=== PATIENT | female | born 1970 | race Caucasian/White ===

== ENCOUNTER 2024-07-01 10:32 | Outpatient (REF) | payer OTHER, SELFPAY ==
--- NOTE | ~2024-07-01 | XR_ITS ---
CLINICAL HISTORY: M54.16 - Radiculopathy, lumbar region 4 views lumbar spine including flexion and extension Comparison: MR - MR LUMBAR SPINE WO CON - 07/04/24 17:54 EST Findings: No acute compression fractures. Subtle 2 mm degenerative anterolisthesis of L4 relative to L5 with associated facet arthropathy. Mild disc space narrowing T12-L1, L2-L3 and L5-S1 with anterior lateral vertebral body osteophytes. Pedicles and transverse processes intact. Lordotic curvature is mild levoscoliosis without lateral listhesis. Normal bone mineralization. Normal soft tissues. Sacroiliac joints unremarkable. No translation on flexion and extension views Impression: 1. Degenerative spondylosis with minimal listhesis and discogenic changes. No translation on flexion and extension views. Mild levoscoliosis This document has been electronically signed by: Lucius Anna MD on 07/05/2024 11:11:56
== END 2024-07-01 10:33 | disposition home or self-care (01) ==
LOC: HO.HOSX 10:32
PROVIDERS: Visit Provider Physician Assistant
DX: M54.16 Radiculopathy, lumbar region (principal)
CPT/HCPCS: 72110

== ENCOUNTER 2024-07-01 10:32 | Outpatient (AMB) | payer OTHER, SELFPAY ==
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
[2024-07-01 10:42] VITALS: BMI 28.3
== END 2024-07-01 11:54 | disposition home or self-care (01) ==
PROVIDERS: Visit Provider Physician Assistant
DX: M54.16 Radiculopathy, lumbar region (principal)
CPT/HCPCS: 99204

== ENCOUNTER → 2024-07-04 17:43 | Outpatient (BNV) | payer OTHER, SELFPAY | PROVIDERS: Visit Provider Radiology Diagnostic Radiology | DX: M54.16 Radiculopathy, lumbar region (principal) | CPT/HCPCS: 72148 ==

== ENCOUNTER 2024-07-04 17:45 | Outpatient (REF) | payer OTHER, SELFPAY ==
--- NOTE | ~2024-07-04 | MR_ITS ---
CLINICAL HISTORY: M54.16 - Radiculopathy, lumbar region Examination: MRI lumbar spine without intravenous contrast Comparison: DX - XR LUMBAR SPINE 4V MIN - 07/01/24 11:04 EST Findings: Plain radiograph correlation: 07/01/2024 demonstrated 5 developed zul-see-gojkhgg lumbar vertebra, discs numbered accordingly. No acute compression fractures. Minimal degenerative anterolisthesis of L4. The vertebral body heights are well maintained. No acute or chronic compression deformities are present. Type 2 Modic changes L2-L3 level. The anterior posterior longitudinal ligament and interspinous ligament are preserved. Paravertebral soft tissues within normal limits. Imaged portion of the retroperitoneum unremarkable. Sacroiliac joints appear normal. The conus demonstrates normal caliber and signal intensity and terminates at L1 level. Individual intervertebral disc levels as follows: L1-L2: Mild loss of disc space height. No disc bulge protrusion or extrusion. No central or foraminal stenosis or thecal sac compression. Normal posterior elements. L2-L3: Mild loss of disc space height. Subarticular disc herniations. Mild degenerative facet arthropathy. No nerve root impingement. L3-L4: Normal disc height and signal with no discogenic changes. Subarticular disc herniations and degenerative facet arthropathy causing mild central and foraminal stenosis. No nerve root impingement. L4-L5: Concentric disc bulge. Degenerative facet hypertrophy encroaching on the neural foramina. Dorsal compression of the thecal sac abutting the descending nerve roots. No nerve root impingement. L5-S1: Mild loss of disc space height. Subarticular disc herniations and degenerative facet hypertrophy is encroaching on the neural foramina. There is impingement of L5 exiting nerve roots bilaterally. T12-L1: Moderate loss of disc space height. Mild disc bulge. No cord or nerve root impingement. Impression: 1. No acute compression fractures. Mild degenerative spondylolisthesis L4. 2. Multilevel degenerative spondylosis and degenerative disc disease as described. There is impingement of L5 exiting nerve roots bilaterally. Type 2 Modic changes L2-L3. 3. Levoscoliosis. This document has been electronically signed by: Lucius Anna MD on 07/05/2024 09:51:10
== END 2024-07-04 17:46 | disposition home or self-care (01) ==
LOC: HO.MRI 17:45
PROVIDERS: Visit Provider Physician Assistant
DX: M54.16 Radiculopathy, lumbar region (principal)
CPT/HCPCS: 72148

== ENCOUNTER 2024-07-11 06:24 | Outpatient (REF) | payer OTHER, SELFPAY ==
--- NOTE | ~2024-07-11 | FL_ITS ---
EXAMINATION: FL GUIDANCE ONLY HISTORY: M54.16 - Radiculopathy, lumbar region COMPARISON: None available. TECHNIQUE: Fluoroscopy time: 0.2 minutes. Cumulative Dose: 5.18 mGy. DAP: 0.0375 uGy-m2 (microgray-meter squared). Images: 3. FINDINGS: Images demonstrate a needle within, and subsequently opacification of, the right L5-S1 facet joint. FL/FL guidance in treatment room IMPRESSION: Fluoroscopy during procedure. Please see procedure report for additional information. Electronically signed by: Billy Brambila MD 07/22/2024 03:23 PM RAMIRO NARVAEZ
== END 2024-07-11 06:25 | disposition home or self-care (01) ==
LOC: CF 06:24
PROVIDERS: Visit Provider Internal Medicine
DX: M54.16 Radiculopathy, lumbar region (principal)
CPT/HCPCS: 64483; J1100; J2003; J3301; Q9967

== ENCOUNTER 2024-07-11 10:45 | Outpatient (AMB) | payer OTHER, SELFPAY ==
[2024-07-11 10:53] VITALS: BP 155/90; PULSE 71; O2SAT 100
--- NOTE | 2024-07-11 10:53 | A.OFFVIS_ITS ---
Vital Signs 07/11/24 10:53 07/11/24 11:30 BP 155/90 H 164/82 H Blood Pressure Location Lt brachial Lt brachial Position Sitting Sitting Pulse 71 75 Pulse Source Pulse Oximeter Pulse Oximeter Pulse Oximetry (%) 100 99 Oxygen Delivery Method Room Air Room Air Intake Visit Reasons: Right L5 TFESI Allergies bacitracin Allergy (Mild, Verified 07/01/24 10:44) Unknown HPI HPI Right L5 TFESI: Details: Patient presents for scheduled procedure. Denies any recent cough, cold, infection, fever or other significant changes in medical history since last office visit. Physical Exam Vital Signs: Last Vital Signs Pulse 75 07/11/24 11:30 BP 164/82 H 07/11/24 11:30 Pulse Ox 99 07/11/24 11:30 Oxygen Delivery Method Room Air 07/11/24 11:30 Office Procedures Details: Transforaminal epidural steroid injection, Right L5 After obtaining written consent, pre-procedure blood pressure and heart rate were stable and recorded in the nursing record. The patient was placed in the prone position on the fluoroscopy table. The lumbosacral area was prepped with chloraprep, allowed to dry and draped in sterile fashion. Using fluoroscopy, the skin overlying our target was anesthetized with 0.5% lidocaine. A 22 gauge 3.5 inch spinal needle was advanced to the safe triangle in the upper pole of the right L5 foramen. No paresthesias were elicited with needle placement and aspiration was negative for blood and CS F. Correct needle position was confirmed with approximately 1 ml contrast dye (Omnipaque 180 mg/ml) injected under real-time fluoroscopy. No evidence of vascular or intrathecal uptake was seen and there was both epidural and peripheral spread of the contrast agent. 15 mg dexamethasone plus 1 ml containing 0.5% lidocaine was slowly injected. The needle was flushed and removed. The skin was cleansed and a sterile bandages were applied. The patient tolerated the procedure well and no complications were encountered. Following the procedure the patient's vital signs were stable. The patient was d ischarged home in good condition with post-procedural instructions. Time Out: Immediately prior to the procedure, the following was verbally confirmed that there is a signed consent form and that the correct patient, planned procedure, site and side are consistent with documentation and that necessary equipment and/or blood products are available prior to the start of the case. Complications: none EBL: <5 cc 99635 - Lumbar/Sacral Procedure code (CPT) selection complete Assessment & Plan Assessment & Plan (1) Lumbar radiculopathy: Code(s): M54.16 - Radiculopathy, lumbar region Category: Medical Plan Patient is status post right L5 TFESI. Patient tolerated procedure well and was discharged home in stable condition with discharge instructions. All questions were answered. We will follow-up via telephone or in clinic to assess response to therapy. A follow-up appointment was made during today's visit. Orders: Orders 2 FL guidance in treatment room Today M54.16 - Radiculopathy, lumbar region Coding Level of Care Code Procedure Only Diagnoses Lumbar radiculopathy M54.16 CPT Codes Transforaminal Epidural Steroid Inj - TESI 3: 52987 - Lumbar/Sacral ([id number])
[2024-07-11 11:30] VITALS: BP 164/82; PULSE 75; O2SAT 99
== END 2024-07-11 11:30 | disposition home or self-care (01) ==
LOC: HO.PMCPRC 10:45
PROVIDERS: PCP Registered Nurse; Visit Provider Internal Medicine
DX: M54.16 Radiculopathy, lumbar region (principal)
CPT/HCPCS: 64483

== ENCOUNTER 2024-08-07 09:03 | Outpatient (AMB) | payer OTHER, SELFPAY ==
--- NOTE | 2024-08-07 09:04 | MHC.OFFVIS ---
Vital Signs 08/07/24 09:06 Height 5 ft 2 in Weight 162 lb BMI 29.6 BP 177/83 H Blood Pressure Location Lt brachial Position Sitting Respiration 16 Pulse 78 Pulse Source Pulse Oximeter Pulse Oximetry (%) 97 Oxygen Delivery Method Room Air Intake Visit Reasons: s/p right L5 TFESI Radar Engineer Required: No Allergies bacitracin Allergy (Mild, Verified 08/07/24 09:07) Unknown Medication List - Last Reconciled 08/07/24 by Lorna Duarte LPN amlodipine (Norvasc) 5 mg PO DAILY timolol 0.5% 1 drp ophthalmic (eye) DAILY HPI HPI s/p right L5 TFESI: Details: History of Present Illness The patient is a 54-year-old female presenting with a follow-up after a right L5 transforaminal epidural injection. The patient reports chronic low back pain with associated right L5 radicular pain. She experienced significant improvement after receiving the injection, noting almost 100% pain relief approximately one week post-procedure. Her pain initially began to subside about three to four days after the treatment. 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 The patient experiences mild stiffness and soreness after long shifts, but these are described as significantly less severe than before the injection. Pain Description - Onset: Pain relief noted three to four days post-injection. - Quality: Initial pain was severe; post-injection relief described as almost 100%. - Primary Location: Low back with right L5 radicular pain. - Exacerbating Factors: Prolong standing and work-related activities. - Relieving Factors: Epidural injection; stretching exercises in the morning. Physical Exam Appears afebrile. Alert and oriented. Mood and affect appropriate. Follows and participates in conversation appropriately. Respiratory effort is unlabored. Able to transition from sit to stand unassisted. Ambulates with bilaterally normal heel strike and toe off. Able to stand and walk on toes and heels. Pain Management - Affect: No adverse impact on psychological wellbeing discussed. - Analgesia: Injection resulted in almost complete pain relief. - Adverse Effects: None reported from the injection. - Activities of Daily Living: Mild stiffness and soreness after long workdays, improved overall functionality. - Aberrant Drug Related Behaviors: None discussed. Physical Exam Vital Signs: Last Vital Signs Pulse 78 08/07/24 09:06 Resp 16 08/07/24 09:06 BP 177/83 H 08/07/24 09:06 Pulse Ox 97 08/07/24 09:06 Oxygen Delivery Method Room Air 08/07/24 09:06 BMI result Body Mass Index 29.6 Assessment & Plan Assessment & Plan (1) Lumbar radiculopathy: Code(s): M54.16 - Radiculopathy, lumbar region Category: Medical Plan Plan - Suggest continuation of stretching routines, especially at night, to aid in managing stiffness. - Consider future right L5 transforaminal epidural injections dependant on return of symptoms. - Utilize video visits for future consultations if feasible, to avoid unnecessary travel. Patient was informed and verbally consented to the use of an ambient scribe for clinic note documentation during this visit. Discussion Notes I discussed with the patient the marked improvement following the transforaminal epidural injection. Advised incorporating evening stretches to aid in managing mild stiffness experienced after long days. We discussed the possibility of scheduling a video consultation for convenience in future follow-ups unless an in-person examination is warranted. Should symptoms recur, the patient was instructed to call for scheduling another injection, contingent on insurance approval. This approach aims to maintain pain relief while minimizing disruption to her daily activities. Patient Instructions - Continue morning stretching routines and add stretching at night to help with stiffness. - Monitor for any return of pain and contact for reevaluation if necessary. - Plan follow-up appointments through video visits where appropriate. Coding Level of Care Code Est Pt Level 3 (74606) Diagnoses Lumbar radiculopathy M54.16
[2024-08-07 09:06] VITALS: BP 177/83; PULSE 78; RESP 16; O2SAT 97; BMI 29.6
== END 2024-08-07 09:45 | disposition home or self-care (01) ==
PROVIDERS: PCP Registered Nurse; Visit Provider Internal Medicine
DX: M54.16 Radiculopathy, lumbar region (principal)
CPT/HCPCS: 99213